=== PATIENT | female | born 1960 ===

== ENCOUNTER 2022-06-11 07:37 | Outpatient (CLI) | payer OTHER | END 2022-06-11 10:46 | disposition home or self-care (01) | LOC: NUCLEAR 07:37 | PROVIDERS: ATTEND Internal Medicine Cardiovascular Disease | DX: I20.8 Other forms of angina pectoris (principal); R07.9 Chest pain, unspecified; R06.09 Other forms of dyspnea | CPT/HCPCS: 78452; 93017; A9500; J0153 ==